=== PATIENT | female | born 1940 | race Caucasian/White ===

== ENCOUNTER 2016-08-15 07:04 | Outpatient (RCR) | payer MEDICARE, OTHER ==
--- OUTSIDE RECORDS SUMMARY | 2016-08-11 10:31 | XMS REPORT | Continuity of Care Document ---
Author Author [facility] Organization [facility] Address Unknown Phone Unavailable Support Name Relationship Address Phone JACKELINECHERYL POLLARD Caregiver [address] [place] [address] LÓPEZ OCONNOR MD Caregiver [address] [place] [address] EUGENE MUNIZ Next Of Kin [address] [place] [id number] Insurance Providers Payer Name Policy Number Subscriber Name Relationship [employer] [id number] Arabella Muniz 20 Self / Same As Patient Enter Insurance Name [id number] Arabella Muniz Self / Same As Patient Advance Directives Directive Response Recorded Date/Time Advance Directives Yes 06/18/14 6:30am Health Care 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 Medications Medication Dose Route Sig Days/Qty Instructions Order Date Discontinued Date Status Simvastatin 40 Mg PO DAILY 05/30/14 Active Levothyroxine Sodium (Levothroid) 1 Each PO DAILY 05/30/14 Active Omeprazole 20 Mg PO DAILY 30 Qty 05/30/14 Active Levomefolate/B6/B12/Algal Oil 1 Each PO DAILY 05/30/14 Active Ca Cmb No.1/Vit D3/B-6/Fa/B12 1 Each PO DAILY 05/30/14 Active Carvedilol 6.25 Mg PO TWICE A DAY 05/30/14 Active Vitamin C/Vitamin E 1 Tab PO DAILY 05/30/14 Active Ubidecarenone 200 Mg PO DAILY 05/30/14 Active Ciprofloxacin HCl 250 Mg PO TWICE A DAY 14 Qty TAKE ONE TABLET BY MOUTH 06/03/14 06/17/14 Discontinued Hyoscyamine Sulfate 1-2 Each PO Q4HR PRN For Spasms 30 Qty EVERY 4 HRS NEEDED FOR PAIN 06/03/14 Active Phenazopyridine HCl 1 Each PO TID PRN For Spasms 30 Qty FOR PAIN OR BLADDER SPASM. 06/03/14 06/17/14 Discontinued Hydrocodone/Acetaminophen 1-2 Each PO EVERY 4HRS For Pain 30 Qty 06/17/14 Discontinued Ciprofloxacin HCl 250 Mg PO TWICE A DAY 14 Qty TAKE 1 TABLET BY MOUTH TWICE A 06/18/14 Active Social History Social History Problem Response Recorded Date/Time Smoking Status Former Smoker 06/18/2014 6:30am Query Response Start Date Stop Date Smoking Status Former Smoker 09/04/1983 Hospital Discharge Instructions No hospital discharge instructions. Plan of Care No plan of care. Functional Status No functional status results. Allergies, Adverse Reactions, Alerts Allergen Type Severity Reaction Status Last Updated Penicillins ([id number]) Allergy Unknown Active 02/06/08 Sulfa (Sulfonamide Antibiotics) ([id number]) Allergy Unknown Active 12/10 Tetracycline ([id number]) Allergy Unknown Active 02/06/08 nitrofurantoin ([id number]) Allergy Unknown Active 05/30/14 Immunizations Name Given Type Date of Pneumonia Vaccine 07/05/09 Historical Date of Influenza Vaccine 06/18/13 Historical Vital Signs Acute Vital Signs Vital Response Date/Time Temperature (Fahrenheit) 97.6 degrees F (97.6 - 99.5) Temperature (Calculated Celsius) 36.03626 degrees C (36.4 - 37.5) Temperature Source Temporal Pulse Rate (adult) 57 bpm (60 - 90) Respiratory Rate 20 bpm (12 - 24) O2 Sat by Pulse Oximetry 96 % (88 - 100) Blood Pressure 134/73 mm Hg Pain Pain Intensity 0 Height (Feet) 5 feet Height (Inches) 4.00 inches Height (Calculated Centimeters) 162.139696 cm Weight (Pounds) 161 pounds Weight (Calculated Grams) 24674.372 gm Weight (Calculated Kilograms) 73.318018 kilograms Height 5 ft 4 in Weight 161 lb Body Mass Index 27.6 kg/m^2 Results Test Source Date Result Interp. Ref. Range Comments Alanine Aminotransferase (ALT/SGPT) February 06, 2008 3:41am 57 U/L N 30-65 Has specimen been collected/obtained? Y Albumin February 06, 2008 3:41am 4.2 G/DL N 3.4-5.0 Has specimen been collected/obtained? Y Alkaline Phosphatase February 06, 2008 3:41am 114 U/L N 50-136 Has specimen been collected/obtained? Y Aspartate Amino Transf (AST/SGOT) February 06, 2008 3:41am 34 U/L N 15-37 Has specimen been collected/obtained? Y BUN/Creatinine Ratio February 06, 2008 3:41am 32 - Has specimen been collected/obtained? Y Basophils # (Auto) February 06, 2008 3:41am 0.0 10^3/uL N 0.0-0.1 Has specimen been collected/obtained? Y Basophils (%) (Auto) February 06, 2008 3:41am 0 % N 0-10 Has specimen been collected/obtained? Y Blood Urea Nitrogen February 06, 2008 3:41am 32 MG/DL H 7-18 Has specimen been collected/obtained? Y Calcium Level February 06, 2008 3:41am 9.3 MG/DL N 8.5-10.1 Has specimen been collected/obtained? Y Carbon Dioxide Level February 06, 2008 3:41am 26 MMOL/L N 21-32 Has specimen been collected/obtained? Y Chloride Level February 06, 2008 3:41am 106 MMOL/L N 101-110 Has specimen been collected/obtained? Y Creatinine February 06, 2008 3:41am 1.0 MG/DL N 0.6-1.3 Has specimen been collected/obtained? Y Eosinophils # (Auto) February 06, 2008 3:41am 0.2 10^3/uL N 0.0-0.3 Has specimen been collected/obtained? Y Eosinophils (%) (Auto) February 06, 2008 3:41am 2 % N 0-10 Has specimen been collected/obtained? Y Glucose Level February 06, 2008 3:41am 107 MG/DL N 70-126 Has specimen been collected/obtained? Y Hematocrit February 06, 2008 3:41am 40 % N 35-52 Has specimen been collected/obtained? Y Hemoglobin February 06, 2008 3:41am 13.3 G/DL N 11.5-16.0 Has specimen been collected/obtained? Y Lymphocytes # (Auto) February 06, 2008 3:41am 2.8 X 10^3 N 1.0-4.0 Has specimen been collected/obtained? Y Lymphocytes (%) (Auto) February 06, 2008 3:41am 30 % N 12-44 Has specimen been collected/obtained? Y Mean Corpuscular Hemoglobin February 06, 2008 3:41am 33 PG N 25-34 Has specimen been collected/obtained? Y Mean Corpuscular Hemoglobin Concent February 06, 2008 3:41am 34 G/DL N 32- 36 Has specimen been collected/obtained? Y Mean Corpuscular Volume February 06, 2008 3:41am 97 FL N 80-99 Has specimen been collected/obtained? Y Mean Platelet Volume February 06, 2008 3:41am 10.3 FL N 7.4-10.4 Has specimen been collected/obtained? Y Monocytes # (Auto) February 06, 2008 3:41am 0.8 X 10^3 N 0.0-1.0 Has specimen been collected/obtained? Y Monocytes (%) (Auto) February 06, 2008 3:41am 9 % N 0-12 Has specimen been collected/obtained? Y Neutrophils # (Auto) February 06, 2008 3:41am 5.3 X 10^3 N 1.8-7.8 Has specimen been collected/obtained? Y Neutrophils (%) (Auto) February 06, 2008 3:41am 59 % N 42-75 Has specimen been collected/obtained? Y Number of Stones February 06, 2008 3:03am 2 - Parathyroid Hormone (Intact) February 05, 2008 4:00pm 24 PG/ML - PARATHYROID ANALYZER:INTACT PTH AND TOTAL CALCIUM BOTH WITHIN REFERENCE RANGE: NORMAL BIOCHEMICAL FINDINGS. Phosphorus Level February 05, 2008 4:00pm 3.8 MG/DL N 2.5-4.9 Platelet Count February 06, 2008 3:41am 252 10^3/uL N 130-400 Has specimen been collected/obtained? Y Potassium Level February 06, 2008 3:41am 4.1 MMOL/L N 3.6-5.0 Has specimen been collected/obtained? Y Red Blood Count February 06, 2008 3:41am 4.09 10^6/uL L 4.35-5.85 Has specimen been collected/obtained? Y Red Cell Distribution Width February 06, 2008 3:41am 12.7 % N 10.0-14.5 Has specimen been collected/obtained? Y Sodium Level February 06, 2008 3:41am 143 MMOL/L N 135-145 Has specimen been collected/obtained? Y Stone Brushite February 18, 2008 1:28pm 0.53 - Stone Calcium February 18, 2008 1:28pm 199 MG/DAY - Stone Comment February 06, 2008 3:03am See footnote - Specimen consists of two, small, light brown, irregularcalculi stones. Stone Composition February 06, 2008 3:03am See footnote % - Calculi composed primarily of:80% calcium oxalate monohydrate (whewellite), and 20% calcium oxalate dihydrate (weddellite). Performed by [facility], [address] [facility], [place] [address] [email or web address], Devin Sahni MD Lab. Director Stone Oxalate February 18, 2008 1:28pm 19 MG/DAY - Stone Size February 06, 2008 3:03am 1 to 4 MM - Stone Sodium Acid Urate February 18, 2008 1:28pm 1.83 - Stone Struvite February 18, 2008 1:28pm 0.01 - Stone Uric Acid February 18, 2008 1:28pm 473 MG/DAY - Stone Weight February 06, 2008 3:03am 10 MG - TEST INFORMATION: Calculi (Stone) analysis Human and/oranimal calculi are the products of physiological processes that yield crystalline compounds in a matrix of biological compounds and blood. The clinically significant crystalline components identified in calculi samples are documented on the sample report. Matrix components are not reported. For related information, see [email or web address] Performed by [facility], [address] [facility], [place] [address] [email or web address], Devin Sahni MD - Lab. Director Total Bilirubin February 06, 2008 3:41am 0.3 MG/DL N 0.0-1.0 Has specimen been collected/obtained? Y Total Protein February 06, 2008 3:41am 7.9 G/DL N 6.4-8.2 Has specimen been collected/obtained? Y Uric Acid February 05, 2008 4:00pm 4.7 MG/DL N 2.6-7.2 Urine Ammonium 24 Hour February 18, 2008 1:28pm 22 MEQ/DAY - Urine Bacteria February 06, 2008 3:00am Large H - Has specimen been collected/obtained? YSpecimen Description VOID Urine Bilirubin February 06, 2008 3:00am Negative - Has specimen been collected/obtained? YSpecimen Description VOID Urine Casts February 06, 2008 3:00am None - Has specimen been collected/ obtained? YSpecimen Description VOID Urine Clarity February 06, 2008 3:00am Cloudy H - Has specimen been collected/obtained? YSpecimen Description VOID Urine Color February 06, 2008 3:00am Yellow - Has specimen been collected /obtained? YSpecimen Description VOID Urine Creatinine 24 Hour February 18, 2008 1:28pm 1107 MG/DAY - THIS TEST WAS PERFORMED AT: [facility] [address] [place] [address] Joanne Bowman PhD Urine Crystals February 06, 2008 3:00am None - Has specimen been collected/obtained? YSpecimen Description VOID Urine Culture Indicated February 06, 2008 3:00am Yes - Has specimen been collected/obtained? YSpecimen Description VOID Urine Glucose (UA) February 06, 2008 3:00am Negative - Has specimen been collected/obtained? YSpecimen Description VOID Urine Ketones February 06, 2008 3:00am Negative - Has specimen been collected/obtained? YSpecimen Description VOID Urine Leukocyte Esterase February 06, 2008 3:00am Negative - Has specimen been collected/obtained? YSpecimen Description VOID Urine Magnesium 24 Hour February 18, 2008 1:28pm 48 l MG/DAY - Urine Mucus February 06, 2008 3:00am Negative - Has specimen been collected/obtained? YSpecimen Description VOID Urine Nitrate February 06, 2008 3:00am Negative - Has specimen been collected/obtained? YSpecimen Description VOID Urine Phosphorus 24 Hour February 18, 2008 1:28pm 952 MG/DAY - Urine Potassium 24 Hour February 18, 2008 1:28pm 46 MEQ/DAY - Urine Protein February 06, 2008 3:00am Negative - Has specimen been collected/obtained? YSpecimen Description VOID Urine RBC February 06, 2008 3:00am >100 /HPF H - Has specimen been collected/obtained? YSpecimen Description VOID Urine Sodium 24 Hour February 18, 2008 1:28pm 181 MEQ/DAY - Urine Specific [place] February 06, 2008 3:00am 1.025 H - Has specimen been collected/obtained? YSpecimen Description VOID Urine Squamous Epithelial Cells February 06, 2008 3:00am 10-25 H - Has specimen been collected/obtained? YSpecimen Description VOID Urine Total Volume 24 Hours February 18, 2008 1:28pm 1.33 l L/DAY - Urine Urobilinogen February 06, 2008 3:00am Normal MG/DL - Has specimen been collected/obtained? YSpecimen Description VOID Urine WBC February 06, 2008 3:00am 5-10 /HPF H - Has specimen been collected/obtained? YSpecimen Description VOID Urine pH February 06, 2008 3:00am 5.0 - Has specimen been collected/ obtained? YSpecimen Description VOID White Blood Count February 06, 2008 3:41am 9.1 10^3/uL N 4.3-11.0 Has specimen been collected/obtained? Y Urine Stone Risk February 18, 2008 1:28pm See footnote - Uric Acid Lithiasis Stone Calcium Oxalate February 18, 2008 1:28pm 1.36 - Lab Scanned Report February 18, 2008 1:30pm Referred Lab Report [id number] - Estimat Glomerular Filtration Rate February 05, 2008 4:00pm 48 - GFR INTERPRETIVE DATA UNITS FOR ESTIMATED GFR (eGFR): mL/min/1.73 M2 REFERENCE RANGE FOR ESTIMATED GFR (eGFR) eGFR NORMAL eGFR >60 MODERATELY DECREASED eGFR 30-59 SEVERLY DECREASED eGFR 15-29 KIDNEY FAILURE <15 (OR DIALYSIS) Urine Uric Acid Saturation Ratio February 18, 2008 1:28pm 4.31 h - Urine Stone Risk Review February 18, 2008 1:28pm See footnote - Low Urinary pHLow Urine Volume Urine Stone Risk Graph February 18, 2008 1:28pm See footnote - Uric acid crystals were present thus uric acid analysis issuspect. GRAPH TO FOLLOW BY MAIL. Urine pH 24 Hour February 18, 2008 1:28pm 5.27 l - Urine Supersaturation Interpret February 18, 2008 1:28pm See footnote - Uric Acid Urine RBC (Auto) February 06, 2008 3:00am 4+ H - Has specimen been collected/obtained? YSpecimen Description VOID Calcium (PTH Intact) February 05, 2008 4:00pm 10.1 MG/DL - MRSA Screen Nasal February 06, 2008 9:30am MRSA not isolated Urine Culture Urine-Clean Catch February 06, 2008 3:00am Beta Strep Group B ( Agalactiae Procedures Procedure Status Date Provider(s) CYSTO/URETERO W/LITHOTRIPSY completed 06/03/14 LÓPEZ OCONNOR MD Extracorporeal shock wave lithotripsy (ESWL) completed 06/18/14 LÓPEZ OCONNOR MD Tracing only of electrocardiogram completed 05/30/14 LÓPEZ OCONNOR MD Encounters Encounter Location Date/Time Registered Clinic [facility] 06/17/14 7:24am Registered Clinic [facility] 06/16/14 11:46am Registered Clinic [facility] 05/30/14 11:40am Registered Clinic [facility] 05/22/14 12:51pm Registered Clinic [facility] 05/21/14 11:20am
--- NOTE | 2016-08-11 13:23 | Diagnostic Imaging Report ---
EXAM: KUB. INDICATION: Bilateral kidney stones. COMPARISON study from 07/14/15. FINDINGS: There is no definitive urinary tract stone identified. Multiple pelvic calcifications are likely phleboliths. There are small to moderate amounts of fecal material in the colon. IMPRESSION: No definitive urinary tract stone. Dictated by: Dictated on workstation # [id number]
[~2016-08-15 07:04] MED LIST: CA C1TAB26 PO; CIPR-226 PO; CRV6.25T PO; FENO134C PO; HYDR-3876 PO; HYDR25TA4 PO; HYOS0.1216 PO; LEVO1CAP3 PO; LVT.088T PO; NFAMINITAB PO; OMEP20CA12 PO; PHEN200T27 PO; POTA5TAB2 PO; SIMV40TA2 PO; TAMS0.4C2 PO; TRIA1CAP PO; UBID100C17 PO
[2016-08-19 14:39] LABS: STONE RISK AMMONIUM 7 mEq/24hr (14-62); STONE RISK BRUSHITE 3.57 (< 2.00); STONE RISK CA OXALATE 2.29 (< 2.00); STONE RISK CALCIUM 57 mg/day (< 250); STONE RISK CITRATE 181 mg/day (> 320); STONE RISK CREATININE 314 mg/day (600-1800); STONE RISK MAGNESIUM 32 mg/day (> 60); STONE RISK OXALATE 14 mg/day (< 45); STONE RISK PHOSPHOROUS 241 mg/day (< 1100); STONE RISK POTASSIUM 10 mEq/24hr (19-135); STONE RISK SODIUM 61 mEq/24hr (< 200); STONE RISK SODIUM URATES 4.32 (< 2.00); STONE RISK STRUVITE 10.38 (< 75.00); STONE RISK SULFITE 3 mmol/day (< 30); STONE RISK TOTAL VOLUME 0.49 L/day (> 2.00); STONE RISK URIC ACID 204 mg/day (< 700); STONE RISK URIC ACID SAT 0.21 (< 2.00)
== END 2016-11-09 | disposition home or self-care (01) ==
LOC: RAD 07:04
PROVIDERS: ATTEND Urology
DX: N20.0 Calculus of kidney (principal)
CPT/HCPCS: 36415; 74000; 82140; 82340; 82507; 82570; 83735; 83945; 83986; 84105; 84133; 84300; 84392; 84560

== ENCOUNTER → 2017-04-14 | Outpatient (CLI) | payer MEDICARE, OTHER ==
--- NOTE | 2017-04-17 19:35 | Diagnostic Imaging Report ---
EXAM: Digital mammogram, bilateral screening with tomosynthesis. COMPARISON: This study was compared to the prior exams of 04/13/16 and 04/15/15. At this time, there are no current complaints. 3D tomographic images fail to show any sign of malignancy. The current study was also evaluated with a Computer Aided Detection (CAD) system. FINDINGS: The fibroglandular tissue in both breasts is heterogeneously dense. This does limit the sensitivity of this exam. Overall, there does not appear to have been any significant change when compared to the prior study. No primary or secondary sign of malignancy is noted. IMPRESSION: There is no radiographic evidence for malignancy. ACR BI-RADS Category 1: Negative. Result letter will be mailed to the patient. Note: At least 10% of breast cancer is not imaged by mammography. Dictated by: Dictated on workstation # [id number]
== END ==
LOC: RAD 09:58
PROVIDERS: ATTEND Family Medicine
DX: Z12.31 Encounter for screening mammogram for malignant neoplasm of breast (principal)
CPT/HCPCS: 77067

== ENCOUNTER → 2017-08-31 | Outpatient (CLI) | payer MEDICARE, OTHER ==
--- NOTE | 2017-08-31 13:05 | Diagnostic Imaging Report ---
Supine view of the abdomen. INDICATION: History of stones. FINDINGS: There are calcifications seen in the pelvis suggestive of phleboliths. No definite urinary tract stone. Degenerative changes in the lower lumbar spine are seen. IMPRESSION: Pelvic calcifications are suggestive of phleboliths with no definitive urinary tract stone. Dictated by: Dictated on workstation # [id number]
== END ==
LOC: RAD 08:26
PROVIDERS: ATTEND Urology
DX: N28.89 Other specified disorders of kidney and ureter (principal); Z87.442 Personal history of urinary calculi
CPT/HCPCS: 74000

== ENCOUNTER 2017-09-02 08:45 | Outpatient (RCR) | payer MEDICARE, OTHER | END 2017-11-29 | disposition home or self-care (01) | LOC: LAB 08:45 | PROVIDERS: ATTEND Urology | DX: Z09 Encounter for follow-up examination after completed treatment for conditions other than malignant neoplasm (principal); Z87.442 Personal history of urinary calculi | CPT/HCPCS: 82140; 82340; 82507; 82570; 83735; 83945; 83986; 84105; 84133; 84300; 84392; 84560 ==

== ENCOUNTER 2019-03-12 07:29 | Outpatient (RCR) | payer MEDICARE, OTHER ==
[2019-03-12 08:02] LABS: CALCIUM 10.2 MG/DL (8.5-10.1); CREATININE SERUM 0.93 MG/DL (0.60-1.30); PHOSPHORUS 3.3 MG/DL (2.3-4.7); POTASSIUM 3.6 MMOL/L (3.6-5.0); URIC ACID 9.1 MG/DL (2.6-7.2)
--- NOTE | 2019-03-12 12:26 | Diagnostic Imaging Report ---
INDICATION: History of renal stones, recent passage of stone a couple weeks ago. TECHNIQUE: 2 supine view of the abdomen 7:52 AM CORRELATION STUDY: 08/31/2017 FINDINGS: Bowel gas pattern appears unremarkable. No evidence for obstruction. No evidence for large fecal impaction. Innumerable calcifications again projecting over the pelvis, likely largely stable and favoring probable phleboliths. Possible distal ureteral stones would be difficult to exclude. Additional small calcification projects over the left renal silhouette. IMPRESSION: 1. Pelvic calcifications suggestive of phleboliths likely unchanged. Definitive ureteric urinary tract stone not demonstrated. Dictated by: Dictated on workstation # [id number]
== END 2019-06-10 | disposition home or self-care (01) ==
LOC: RAD 07:29
PROVIDERS: ATTEND Urology
DX: N20.2 Calculus of kidney with calculus of ureter (principal)
CPT/HCPCS: 36415; 74018; 80048; 82140; 82340; 82507; 82570; 83735; 83945; 83986; 84100; 84105; 84133; 84300; 84392; 84550; 84560

== ENCOUNTER → 2019-06-12 | Outpatient (CLI) | payer MEDICARE, OTHER ==
--- NOTE | 2019-06-12 12:43 | Diagnostic Imaging Report ---
INDICATION: Routine screening. COMPARISON: 05/01/2018 and 04/14/2017. TECHNIQUE: 2D and 3D bilateral screening mammography was performed with CAD. FINDINGS: Scattered fibroglandular densities are identified bilaterally. Benign calcifications are again noted bilaterally. No mass or malignant appearing microcalcifications are seen. The axillae are unremarkable. IMPRESSION: No mammographic features suspicious for malignancy are identified. ACR BI-RADS Category 2: Benign findings. Result letter will be mailed to the patient. Note: At least 10% of breast cancer is not imaged by mammography. Dictated by: Dictated on workstation # [id number]
== END ==
LOC: RAD 07:33
PROVIDERS: ATTEND Family Medicine
DX: Z12.31 Encounter for screening mammogram for malignant neoplasm of breast (principal)
CPT/HCPCS: 77067

== ENCOUNTER → 2021-06-22 | Outpatient (CLI) | payer MEDICARE, OTHER ==
--- NOTE | 2021-06-22 14:16 | Diagnostic Imaging Report ---
INDICATION: Memory loss. Carotid bruit. TECHNIQUE: Routine non contrast-enhanced axial images were obtained from the skull base to the vertex. Auto Exposure Controls were utilized during the CT exam to meet ALARA standards for radiation dose reduction COMPARISON: None. FINDINGS: The ventricles and cortical sulci are diffusely prominent, compatible with age-related volume loss. There are confluent areas of abnormal, low attenuation in the periventricular white matter. This is consistent with small vessel ischemic changes; age-indeterminate. There is no prior study available for comparison. There is no midline shift or mass-effect. No acute intra-axial hemorrhage is seen. There are no abnormal areas of increased or decreased density to suggest acute hemorrhage or edema. No extra-axial masses or collections are present. The bony calvarium is intact. The visualized paranasal sinuses are unremarkable. The mastoid air cells are clear. IMPRESSION: 1. No acute intracranial abnormality. No CT evidence of mass, acute infarct or intracranial hemorrhage. 2. Small vessel ischemic changes in the periventricular and subcortical white matter; likely chronic. Dictated by: Dictated on workstation # [id number]
--- NOTE | 2021-06-22 14:34 | Diagnostic Imaging Report ---
PROCEDURE: US carotid duplex bilateral. TECHNIQUE: Multiple Real-time grayscale images were obtained over the carotid arteries in various projections bilaterally. Additional spectral analysis and color Doppler duplex images were also obtained. INDICATION: Carotid stenosis. FINDINGS: The previous carotid Doppler exam performed on 08/22/2014 failed to show any sign of a hemodynamically significant stenosis of either carotid system. On this exam, there is a moderate amount of hard and soft plaque formation involving both carotid bifurcations. The flow velocities still fail to show any sign of a hemodynamically significant stenosis of the common or internal carotid arteries. Both vertebral arteries are identified and there is antegrade flow bilaterally. IMPRESSION: There is atherosclerotic disease involving both carotid systems but there is no evidence for a hemodynamically significant stenosis of the common or internal carotid arteries. Parameters based on the consensus panel Laguna-Scale and Doppler ultrasound criteria published July 2003, Radiology, Volume 229. DOPPLER (peak systolic velocity M/S Right Left CCA .67 .63 ICA Proximal .53 .43 ICA Mid .70 .75 ICA Distal .68 .81 RATIO 1.05 1.29 ECA .87 .70 VERT .31 .38 Dictated by: Dictated on workstation # [id number]
== END ==
LOC: RAD 13:12
PROVIDERS: ATTEND Family Medicine
DX: I65.23 Occlusion and stenosis of bilateral carotid arteries (principal); I67.82 Cerebral ischemia
CPT/HCPCS: 70450; 93880

== ENCOUNTER → 2022-01-10 | Outpatient (CLI) | payer MEDICARE, OTHER ==
[~2022-01-10] MED LIST changes: -FENO134C PO; +FENO134C21 PO
--- NOTE | 2022-01-10 12:30 | Diagnostic Imaging Report ---
INDICATION: Fall. Difficulty walking. Left-sided pelvic pain. COMPARISON: None FINDINGS: A single AP view of the pelvis was performed. There is no radiographic evidence of acute fracture or dislocation. Pubic symphysis is within normal limits. SI joints are symmetric. Proximal femurs are intact, bilaterally. The femoro-acetabular joint spaces appear maintained on this single frontal view. Remainder of the bony pelvis is intact as well. No unexpected radiopaque foreign bodies are seen. Included small bowel loops are nondistended. Impression: 1. No radiographic evidence of acute fracture or dislocation of the bony pelvis. Dictated by: Dictated on workstation # [id number]
== END ==
LOC: RAD 11:27
PROVIDERS: ATTEND Family Medicine
DX: R10.2 Pelvic and perineal pain (principal); R26.89 Other abnormalities of gait and mobility; W19.XXXA Unspecified fall, initial encounter
CPT/HCPCS: 72170

== ENCOUNTER 2022-05-03 14:34 | Outpatient (RCR) | payer MEDICARE, OTHER | END 2022-05-04 | disposition home or self-care (01) | PROVIDERS: ATTEND Family Medicine | DX: G14 Postpolio syndrome (principal); R53.1 Weakness; I10 Essential (primary) hypertension; Z91.81 History of falling ==

== ENCOUNTER 2022-05-12 11:07 | Outpatient (RCR) | payer MEDICARE, OTHER | END 2022-05-12 12:05 | disposition home or self-care (01) | PROVIDERS: ATTEND Family Medicine | DX: G14 Postpolio syndrome (principal); I10 Essential (primary) hypertension ==